=== PATIENT | male | born 1980 | race Caucasian/White ===

== ENCOUNTER 2018-03-22 06:47 | Emergency (ER) | payer MEDICARE, OTHER ==
[~2018-03-22] VITALS: Ht 185.4 cm; Wt 112.0 kg
[~2018-03-22 06:47] MED LIST: BUPR300T53 PO; CYCL-1 PO; IBUP-1984 PO; ROPI0.252 PO
[2018-03-22 06:57] VITALS: BP 147/89
[2018-03-22] MEDS ORDERED: PRED5TAB PO (07:43)
[2018-03-22] MEDS ORDERED: dexamethasone 4mg tablet PO ONE (07:45)
== END 2018-03-22 08:24 | disposition home or self-care (01) ==
LOC: ER 06:47
DX: L23.7 Allergic contact dermatitis due to plants, except food (principal); F12.10 Cannabis abuse, uncomplicated; I10 Essential (primary) hypertension; G43.909 Migraine, unspecified, not intractable, without status migrainosus; Z88.0 Allergy status to penicillin; Z79.899 Other long term (current) drug therapy
CPT/HCPCS: 99283; J8540

== ENCOUNTER 2019-01-05 14:43 | Emergency (ER) | payer MEDICARE, OTHER ==
[~2019-01-05] VITALS: Ht 185.4 cm; Wt 105.0 kg
[~2019-01-05 14:43] MED LIST changes: +PRED5TAB PO
[2019-01-05 14:45] VITALS: BP 182/118
[2019-01-05] MEDS ORDERED: LORA1TAB PO (14:51)
== END 2019-01-05 15:01 | disposition home or self-care (01) ==
LOC: ER 14:43
DX: F15.10 Other stimulant abuse, uncomplicated (principal); I10 Essential (primary) hypertension; F12.90 Cannabis use, unspecified, uncomplicated; Z88.0 Allergy status to penicillin; Z79.899 Other long term (current) drug therapy
CPT/HCPCS: 99283

== ENCOUNTER 2019-02-09 23:15 | Emergency (ER) | payer MEDICARE, OTHER ==
[~2019-02-09] VITALS: Ht 185.4 cm; Wt 77.6 kg
[2019-02-09 23:25] VITALS: BP 162/108
--- NOTE | 2019-02-10 06:20 | NUR ---
PHONED [phone]: PATIENT'S MOTHER TR ANSWERED: LEFT MESSAGE WITH MOTHER FOR PATIENT TO RETURN TO ER
[2019-02-10] MEDS ORDERED: NAPR-56 PO (08:14)
[2019-02-10] MEDS ORDERED: CYCL-1 PO (08:14)
== END 2019-02-10 06:26 | disposition left against medical advice (07) ==
LOC: ER 23:15
DX: M25.561 Pain in right knee (principal); Z53.21 Procedure and treatment not carried out due to patient leaving prior to being seen by health care provider

== ENCOUNTER 2019-02-10 07:51 | Emergency (ER) | payer OTHER, MEDICARE ==
[~2019-02-10] VITALS: Ht 185.4 cm; Wt 106.2 kg
[2019-02-10] MEDS ORDERED: NAPR-56 PO (08:14)
[2019-02-10] MEDS ORDERED: CYCL-1 PO (08:14)
[2019-02-10] MEDS ORDERED: ketorolac trometh inj. 60 MG/2 ML VIAL IM ONE (08:15)
[2019-02-10 08:47] VITALS: BP 142/94
== END 2019-02-10 09:38 | disposition home or self-care (01) ==
LOC: ER 07:51
DX: S16.1XXA Strain of muscle, fascia and tendon at neck level, initial encounter (principal); S13.4XXA Sprain of ligaments of cervical spine, initial encounter; M25.512 Pain in left shoulder; M25.511 Pain in right shoulder; M54.5 Low back pain; I10 Essential (primary) hypertension; G43.909 Migraine, unspecified, not intractable, without status migrainosus; F12.90 Cannabis use, unspecified, uncomplicated; F15.90 Other stimulant use, unspecified, uncomplicated; Z88.0 Allergy status to penicillin; V89.2XXA Person injured in unspecified motor-vehicle accident, traffic, initial encounter; Y93.89 Activity, other specified; Y92.488 Other paved roadways as the place of occurrence of the external cause; Y99.8 Other external cause status
CPT/HCPCS: 96372; 99283; J1885

== ENCOUNTER 2019-08-20 19:16 | Emergency (ER) | payer MEDICARE ==
[~2019-08-20] VITALS: Ht 185.4 cm; Wt 105.3 kg
[2019-08-20] MEDS ORDERED: normal saline 1000ML IV soln IV ONE (20:05)
[2019-08-20] MEDS ORDERED: CefTRIAXone 2gm/D5W 50ml 50 ML IV ONE (20:15)
[2019-08-20 20:37] LABS: BASOPHILS # (AUTO) 0.1 X10'3 (0-0.2); BASOPHILS % (AUTO) 0.9 % (0-1); EOSINOPHILS # (AUTO) 0.2 X10'3 (0-0.9); EOSINOPHILS % (AUTO) 1.3 % (0-6); HEMATOCRIT 45.8 % (42.0-52.0); HEMOGLOBIN 15.5 g/dl (14.0-17.9); LYMPHOCYTES # (AUTO) 2.1 X10'3 (1.1-4.8); LYMPHOCYTES % (AUTO) 15.8 % (21-51); MEAN CORPUSCULAR HGB CONC 33.8 g/dL (33.0-36.5); MEAN CORPUSCULAR VOLUME 82.9 FL (78-98); MEAN PLATELET VOLUME 7.6 FL (7.4-10.4); MONOCYTES # (AUTO) 0.9 X10'3 (0-0.9); MONOCYTES % (AUTO) 6.8 % (2-12); NEUTROPHILS # (AUTO) 10.2 X10'3 (1.8-7.7); NEUTROPHILS % (AUTO) 75.2 % (42-75); PLATELET COUNT 299 X10'3 (140-440); RED BLOOD COUNT 5.53 X10'6 (4.70-6.10); RED CELL DISTRIBUTION WIDTH 15.2 % (11.5-14.5); WHITE BLOOD COUNT 13.6 X10'3 (4.5-11.0)
[2019-08-20 20:51] LABS: ALANINE AMINOTRANSFERASE 24 U/L (12-78); ALBUMIN 3.9 G/DL (3.4-5.0); ALBUMIN/GLOBULIN RATIO 0.8 (1.1-1.5); ALKALINE PHOSPHATASE 92 IU/L (46-116); ANION GAP 7 (8-16); ASPARTATE AMINO TRANSFERASE 14 U/L (10-37); BILIRUBIN,TOTAL 0.6 MG/DL (0.1-1.0); BLOOD UREA NITROGEN 14 MG/DL (7-18); BUN/CREATININE RATIO 12.1 (5.4-32.0); CHLORIDE 102 MMOL/L (99-107); CREATININE 1.16 MG/DL (0.60-1.10); GLUCOSE 99 MG/DL (70-104); POTASSIUM 3.8 MMOL/L (3.5-5.1); SODIUM 139 MMOL/L (135-145); TOTAL CARBON DIOXIDE 30.2 MMOL/L (24-32); TOTAL PROTEIN 8.6 G/DL (6.4-8.2); eGFR 70 ML/MIN
--- NOTE | 2019-08-20 21:14 | NUR ---
ORDER FOR BOLUS FLUIDS CHANGED FROM 3.5 LITERS TO 2 LITERS PER LEEANN PA
[2019-08-20] MEDS ORDERED: sulfamethoxazole/trimethoprim DS (800/160mg) tablet PO ONE (21:20)
[2019-08-20] MEDS ORDERED: BACDS PO (22:36)
[2019-08-20 23:02] VITALS: BP 158/91
== END 2019-08-20 23:03 | disposition home or self-care (01) ==
LOC: ER 19:17
DX: L02.414 Cutaneous abscess of left upper limb (principal); R00.0 Tachycardia, unspecified; G43.909 Migraine, unspecified, not intractable, without status migrainosus; I10 Essential (primary) hypertension; G47.30 Sleep apnea, unspecified; F41.9 Anxiety disorder, unspecified; F32.9 Major depressive disorder, single episode, unspecified; F41.0 Panic disorder [episodic paroxysmal anxiety]; F20.9 Schizophrenia, unspecified; F12.90 Cannabis use, unspecified, uncomplicated; Z88.0 Allergy status to penicillin; Z79.2 Long term (current) use of antibiotics; Z79.899 Other long term (current) drug therapy
CPT/HCPCS: 36415; 80053; 83605; 84145; 85025; 87040; 93005; 96365; 96366; 99284; J0696; J7030; J7040

== ENCOUNTER 2023-06-26 05:57 | Emergency (ER) | payer MEDICARE | END 2023-06-26 06:10 | disposition left against medical advice (07) | LOC: ER 05:58 | DX: T63.301A Toxic effect of unspecified spider venom, accidental (unintentional), initial encounter (principal); Z53.21 Procedure and treatment not carried out due to patient leaving prior to being seen by health care provider; Y92.89 Other specified places as the place of occurrence of the external cause ==